=== PATIENT | female | born 1985 ===

== ENCOUNTER 2019-01-30 20:34 | Emergency (ER) | payer SELFPAY ==
[~2019-01-30] VITALS: Ht 175.3 cm; Wt 62.0 kg
[2019-01-30 20:35] VITALS: BP 129/89
--- NOTE | 2019-01-30 20:51 | NUR ---
PT DENIES MEDICAL COMPLAINT. SHE IS ONLY REQUESTING A BLOOD TEST TO "PROVE SHE IS NOT ON METH"
[2019-01-30 22:00] LABS: URINE AMPHETAMINE SCREEN NEGATIVE (Neg); URINE BARBITUATE SCREEN NEGATIVE (Neg); URINE BENZODIAZEPINES SCREEN NEGATIVE (Neg); URINE CANNABINOID SCREEN POSITIVE (Neg); URINE COCAINE SCREEN NEGATIVE (Neg); URINE METHADONE SCREEN NEGATIVE (Neg); URINE OPIATE SCREEN NEGATIVE (Neg); URINE PHENCYCLIDINE SCREEN NEGATIVE (Neg)
== END 2019-01-30 22:48 | disposition home or self-care (01) ==
LOC: ER 20:35
DX: Z13.89 Encounter for screening for other disorder (principal); F31.9 Bipolar disorder, unspecified; F12.90 Cannabis use, unspecified, uncomplicated; F15.90 Other stimulant use, unspecified, uncomplicated; F17.200 Nicotine dependence, unspecified, uncomplicated; Z88.8 Allergy status to other drugs, medicaments and biological substances; Z88.6 Allergy status to analgesic agent
CPT/HCPCS: 80305; 99283